=== PATIENT | female | born 1980 | race Hispanic/Latino ===

== ENCOUNTER 2017-09-30 17:00 | Emergency (ER) | payer BC, SELFPAY ==
[2017-09-30] MEDS ORDERED: Ondansetron HCl/PF 4 MG/2 ML Vial ONE (17:35)
[2017-09-30] MEDS ORDERED: Bupivacaine 0.5% 10 ML VIAL ONE (19:00)
[2017-09-30] MEDS ORDERED: Naloxone HCl 2 mg/2 ml Syringe ONE (19:45)
[2017-09-30] MEDS ORDERED: Acetaminophen 500 MG TAB ONE (20:18)
--- NOTE | 2017-09-30 22:03 | RAD ---
TWO VIEW RIGHT ANKLE 09/30/17 COMPARISON: Earlier same day. CLINICAL HISTORY: Post reduction, injury. FINDINGS: There has been placement of a splint with marked improvement of alignment involving fracture disloca tion of distal fibula, and tibia. Slight residual widening of the media aspect of the ankle mortise remains. Fracture lucencies are again seen at the distal fibula. IMPRESSION: Casted distal fibular fracture with interval improved alignment of the distal fibula and tibia. POS: JOSHUA
--- NOTE | 2017-09-30 22:05 | RAD ---
TWO VIEW RIGHT ANKLE 09/30/17 INDICATION: Injury. Pain. FINDINGS: There is a markedly displaced and angulated fracture centered at the distal fibula. There is disrupt ion of the tibiotalar articulation with prominent Medial deviation/dislocation of the distal tibia r elative to the talus. There is exuberant osteophytosis centered at the dorsal and anterior aspect of the talus. There is soft tissue swelling. IMPRESSION: Fracture dislocation involving distal tibia and fibula. Recommend orthopedic consultation. POS: JOSHUA
== END 2017-09-30 21:29 | disposition home or self-care (01) ==
LOC: ERS 17:00
DX: S82.851A Displaced trimalleolar fracture of right lower leg, initial encounter for closed fracture (principal); S80.12XA Contusion of left lower leg, initial encounter; W19.XXXA Unspecified fall, initial encounter; Y92.69 Other specified industrial and construction area as the place of occurrence of the external cause; Y99.0 Civilian activity done for income or pay
CPT/HCPCS: 27810; 96374; 96375; 99152; 99153; J1170; J2270; J2310; J2405; J3490

== ENCOUNTER 2017-10-02 10:36 | Outpatient (CLI) | payer OTHER | END 2017-10-02 10:37 | disposition home or self-care (01) | LOC: LABBT 10:36 | PROVIDERS: ATTEND Orthopaedic Surgery | DX: Z01.818 Encounter for other preprocedural examination (principal); S82.61XD Displaced fracture of lateral malleolus of right fibula, subsequent encounter for closed fracture with routine healing ==

== ENCOUNTER 2017-10-03 05:57 | Day surgery (SDC) | payer OTHER ==
[2017-10-02 10:58] VITALS: BMI 35.4
[2017-10-03] MEDS ORDERED: CEFAZOLIN/Water 2 GM/20 ML SYRINGE ONE (06:35)
[2017-10-03] MEDS ORDERED: Fentanyl 100 MCG/2 ML VIAL ONE ×2 (06:36→10:32)
[2017-10-03] MEDS ORDERED: Midazolam HCl 2 mg/2 ml Vial ONE ×2 (06:36→08:39)
[2017-10-03] MEDS ORDERED: Bupivacaine/Epinephrine 0.25% 30 ML VIAL ONE ×2 (08:32→08:33)
[2017-10-03] MEDS ORDERED: Neomycin-Polymyxin 1 ML AMP ONE (08:32)
[2017-10-03] MEDS ORDERED: Fentanyl 250 MCG/5 ML VIAL ONE (08:39)
[2017-10-03] MEDS ORDERED: Propofol 200 MG/20 ML VIAL ONE (09:03)
[2017-10-03] MEDS ORDERED: Lidocaine 1% PF 5 ML VIAL ONE (09:03)
[2017-10-03] MEDS ORDERED: Promethazine HCl 25 MG/ML VIAL IM/IV PRN (10:38)
[2017-10-03] MEDS ORDERED: Non-Formulary Medication 1 EACH PO PRN (10:38)
[2017-10-03] MEDS ORDERED: Ondansetron HCl/PF 4 MG/2 ML Vial IVP PRN (10:38)
--- NOTE | 2017-10-03 11:19 | RAD ---
RIGHT ANKLE 3 VIEWS: Date: 10/03/17 HISTORY: 37-year-old female with history of status post open reduction and internal fixation right ankle. FINDINGS: The previously noted spiral fracture of the distal fibula has been stabilized with metal plate and s crews. There is some diffuse soft tissue swelling. No significant malalignment. Prominent anterior s pur or osteophyte off the distal talar head is incidentally noted. IMPRESSION: Right distal fibular fracture stabilized with metal plate and screws. POS: JOSHUA
[2017-10-03] MEDS ORDERED: Acetaminophen/Codeine 30-300mg Tablet ONE (12:00)
--- NOTE | 2017-10-06 11:20 | OP ---
DATE OF SURGERY: 10/03/2017 PREOPERATIVE DIAGNOSIS: Right lateral malleolus fracture. POSTOPERATIVE DIAGNOSIS: Right lateral malleolus fracture. SURGICAL PROCEDURE: Open reduction and internal fixation, right lateral malleolus. ANESTHESIA: General. SURGEON: Gnenaro Chappell M.D. TOURNIQUET TIME: 41 minutes at 300 mmHg. IMPLANTS: The [employer]ynthes 5-hole distal fibular plate with a combination of 2.7 mm locking screws and 3. 5 mm cortical screws. COMPLICATIONS: None. DRAINS: None. SPECIMEN: None. OUTCOME: Satisfactory. INDICATIONS: Patient is a 37-year-old lady status post twisting injury sustaining a right lateral ma lleolus fracture with displacement. After discussion with patient including risks and benefits, we h ave decided to proceed with an open reduction and internal fixation for evangelical of function. Inf ormed consent has been obtained. I believe all questions have been answered. PROCEDURE: After the induction of general anesthesia, a sterile prep and drape was performed of the right lower extremity. Next, the limb was exsanguinated with Esmarch bandage, tourniquet inflated to 300 mmHg. A lateral incision was made overlying the distal fibula after skin was sharply incised, d issection was carried down bluntly to the underlying fracture. Using minimal subperiosteal dissectio n, the fracture edges were freed of soft tissue and then a bone tenaculum was used to reduce and hold the reduction in place. Next, an anterior to posterior interfragmentary screw was applied. This wa s then followed by application of a 5-hole fibular plate to the lateral cortex of the distal fibula. This was held in place with a 2.7 mm screws distally and then 3.5 mm screws proximally. At completi on of this, there was found to be anatomic evangelical of the lateral malleolus with no widening of t he mortise and no lateral shift of the talus. The wound was then irrigated with bulb syringe and don sed in layers with 0 Vicryl deep, followed by 2-0 Vicryl and then torres for the skin. A Xeroform g auze, Webril, and fiberglass splint was then applied to the ankle and the patient was transferred to recovery room in stable condition. There were no complications. She tolerated the procedure well.
== END 2017-10-03 12:55 | disposition home or self-care (01) ==
LOC: SDC 05:57
PROVIDERS: ATTEND Orthopaedic Surgery
PROC: 0QSJ04Z Reposition Right Fibula with Internal Fixation Device, Open Approach (ICD-10-PCS; principal; 2017-10-03)
DX: S82.61XA Displaced fracture of lateral malleolus of right fibula, initial encounter for closed fracture (principal)
CPT/HCPCS: 76001; 96374; C1713; J2001; J2250; J2704; J3010

== ENCOUNTER 2019-12-31 13:35 | Outpatient (CLI) | payer BC ==
--- NOTE | 2020-01-06 13:27 | MMO ---
Bilateral MAMMO Bilat Screen [facility]. CLINICAL HISTORY: Patient is 39 years old and is seen for screening. The patient has no family history of breast cancer. The patient has no personal history of cancer. VIEWS: The views performed were: bilateral craniocaudal with tomosynthesis and bilateral mediolateral oblique with tomosynthesis. FILMS COMPARED: The present examination has been compared to a prior imaging study performed at [facility] on 02/02/2015. This study has been interpreted with the assistance of computer-aided detection. MAMMOGRAM FINDINGS: The breasts are heterogeneously dense, which could obscure a lesion on mammography. There are no suspicious masses, suspicious calcifications, or new areas of architectural distortion. IMPRESSION: THERE IS NO MAMMOGRAPHIC EVIDENCE OF MALIGNANCY. A ROUTINE FOLLOW-UP MAMMOGRAM IN 1 YEAR IS RECOMMENDED. THE RESULTS OF THIS EXAM WERE SENT TO THE PATIENT. ACR BI-RADS Category 1 - Negative MAMMOGRAPHY NOTE: 1. A negative mammogram report should not delay a biopsy if a dominant of clinically suspicious mass is present. 2. Approximately 10% to 15% of breast cancers are not detected by mammography. 3. Adenosis and dense breasts may obscure an underlying neoplasm. Reported by: MAYTE HOOKER MD Electonically Signed: [id number]
== END 2019-12-31 13:36 | disposition home or self-care (01) ==
LOC: BICMAMMO 13:35
PROVIDERS: ATTEND Family Medicine
DX: Z12.31 Encounter for screening mammogram for malignant neoplasm of breast (principal)
CPT/HCPCS: 77063; 77067

== ENCOUNTER 2020-01-03 08:01 | Outpatient (CLI) | payer BC ==
--- NOTE | 2020-01-03 08:57 | ULT ---
Exam: Transabdominal and endovaginal pelvic ultrasound HISTORY:Pelvic pain COMPARISON: None TECHNIQUE: Transabdominal and endovaginal imaging of the pelvis is performed. Ovaries are interrogate d with grayscale, color flow, Doppler imaging and spectral wave form analysis FINDINGS: Uterus: No myometrial masses. Uterus measurin.8 x 4.2 x 6.0 cm. Endometrium: Homogeneous echotexture. Endometrium diameter: 1 cm. . Free fluid: None Right ovary: Normal echotexture Right ovary measurement: 1.6 x 1.5 x 2.4 cm Left ovary: Normal echotexture. Left ovary measurements: 1.6 x 2.2 x 1.7 cm Ovarian Doppler: There is vascular flow to the left and right ovary. IMPRESSION: Unremarkable pelvic ultrasound.
== END 2020-01-03 08:02 | disposition home or self-care (01) ==
LOC: BICULT 08:01
PROVIDERS: ATTEND Family Medicine
DX: R10.2 Pelvic and perineal pain (principal)
CPT/HCPCS: 76856

== ENCOUNTER 2021-03-22 11:18 | Outpatient (CLI) | payer BC | END 2021-03-22 11:19 | disposition home or self-care (01) | LOC: BICRAD 11:18 | PROVIDERS: ATTEND Family Medicine | DX: M25.561 Pain in right knee (principal) ==

== ENCOUNTER 2021-11-26 09:44 | Outpatient (CLI) | payer BC | END 2021-11-26 09:45 | disposition home or self-care (01) | LOC: BICMAMMO 09:44 | PROVIDERS: ATTEND Family Medicine | DX: N64.4 Mastodynia (principal) | CPT/HCPCS: 77066; G0279 ==

== ENCOUNTER 2022-06-21 07:42 | Outpatient (CLI) | payer BC | END 2022-06-21 07:43 | disposition home or self-care (01) | LOC: ULT 07:42 | PROVIDERS: ATTEND Family Medicine | DX: R10.9 Unspecified abdominal pain (principal); K76.0 Fatty (change of) liver, not elsewhere classified | CPT/HCPCS: 76700 ==